=== PATIENT | female | born 1985 | race Caucasian/White ===

== ENCOUNTER 2017-04-30 14:48 | Emergency (ER) | payer MEDICAID ==
[~2017-04-30] VITALS: Ht 160 cm; Wt 67.1 kg
[2017-04-30 15:45] VITALS: BP 118/84
== END 2017-04-30 15:45 | disposition home or self-care (01) ==
LOC: ED 14:48
DX: K42.9 Umbilical hernia without obstruction or gangrene (principal)

== ENCOUNTER 2018-08-16 14:11 | Emergency (ER) | payer MEDICAID ==
[~2018-08-16] VITALS: Ht 152.4 cm; Wt 66.7 kg
[2018-08-16 14:32] VITALS: Ht 152.4 cm; Wt 66.7 kg
[2018-08-16 15:50] VITALS: BP 115/76
== END 2018-08-16 15:50 | disposition home or self-care (01) ==
LOC: ED 14:11
DX: M67.471 Ganglion, right ankle and foot (principal)

== ENCOUNTER 2020-03-03 01:34 | Emergency (ER) | payer MEDICAID, SELFPAY ==
[~2020-03-03] VITALS: Ht 152.4 cm; Wt 63.5 kg
[2020-03-03 01:37] VITALS: Ht 152.4 cm; Wt 63.5 kg
[2020-03-03 05:26] LABS: microscopic required? YES; urine erythrocyte TRACE (NEGATIVE)
[2020-03-03 06:05] VITALS: BP 112/64
== END 2020-03-03 06:05 | disposition home or self-care (01) ==
LOC: ED 01:34
PROVIDERS: Student in an Organized Health Care Education/Training Program
DX: N39.0 Urinary tract infection, site not specified (principal); Z20.828 Contact with and (suspected) exposure to other viral communicable diseases
CPT/HCPCS: Q0092; U0003-CS

== ENCOUNTER 2020-03-11 11:38 | Emergency (ER) | payer MEDICAID ==
[~2020-03-11] VITALS: Ht 160 cm; Wt 64.0 kg
[2020-03-11 12:02] VITALS: Ht 160 cm; Wt 64.0 kg
[2020-03-11 13:19] VITALS: BP 133/76
== END 2020-03-11 13:19 | disposition home or self-care (01) ==
LOC: ED 11:38
DX: S70.02XA Contusion of left hip, initial encounter (principal); Z87.19 Personal history of other diseases of the digestive system; V09.9XXA Pedestrian injured in unspecified transport accident, initial encounter; Y93.89 Activity, other specified; Y92.488 Other paved roadways as the place of occurrence of the external cause; Y99.8 Other external cause status